=== PATIENT | male | born 1980 | race Two or more races ===

== ENCOUNTER 2024-02-20 15:47 | Emergency (ER) | payer SELFPAY ==
[~2024-02-20] VITALS: Ht 185.4 cm; Wt 133.4 kg
[2024-02-20 15:56] VITALS: TEMP 98.2
[2024-02-20 15:58] VITALS: BP 178/98; PULSE 77; RESP 18; O2SAT 95
[2024-02-20] MEDS: ONDANSETRON ODT 4 MG TAB PO ONE (16:34)
[2024-02-20] MEDS: KETOROLAC TROMETH 30 MG/ML 1ML VIAL IM ONE (16:35)
[2024-02-20] MEDS ORDERED: HYDR-4902 PO (17:09)
[2024-02-20] MEDS ORDERED: CYCL-839 PO (17:09)
[2024-02-20] MEDS ORDERED: NABU-72 PO (17:09)
[2024-02-20] MEDS ORDERED: PRED20TA2 PO (17:09)
== END 2024-02-20 17:13 | disposition home or self-care (01) ==
LOC: ER 15:47
DX: M54.50 Low back pain, unspecified (principal); Z79.899 Other long term (current) drug therapy
CPT/HCPCS: 72100; 96372; 99283; J1885; Q0162